=== PATIENT | female | born 1985 | race Caucasian/White ===

== ENCOUNTER 2021-07-28 22:54 | Emergency (ER) | payer BC ==
[~2021-07-28] VITALS: Ht 157.5 cm; Wt 53.0 kg
[2021-07-28 23:02] VITALS: BP 126/84
== END 2021-07-28 23:41 | disposition left against medical advice (07) ==
LOC: ER 22:54
DX: Z53.21 Procedure and treatment not carried out due to patient leaving prior to being seen by health care provider (principal)